=== PATIENT | male | born 1975 | race African-American/Black ===

== ENCOUNTER 2017-09-12 19:43 | Emergency (ER) | payer OTHER ==
[~2017-09-12] VITALS: Ht 175.3 cm; Wt 79.4 kg
[~2017-09-12 19:43] MED LIST: ZOFRAN4 M1 PO
[2017-09-12 20:36] VITALS: BP 164/107
== END 2017-09-12 20:11 | disposition home or self-care (01) ==
LOC: ED 19:43
DX: M54.31 Sciatica, right side (principal); I10 Essential (primary) hypertension

== ENCOUNTER 2017-09-15 23:04 | Emergency (ER) | payer OTHER ==
[~2017-09-15] VITALS: Ht 175.3 cm; Wt 77.1 kg
[2017-09-16 01:03] VITALS: BP 168/133
== END 2017-09-16 01:03 | disposition home or self-care (01) ==
LOC: ED 23:04
DX: S39.012A Strain of muscle, fascia and tendon of lower back, initial encounter (principal); M54.41 Lumbago with sciatica, right side; X58.XXXA Exposure to other specified factors, initial encounter; Y93.89 Activity, other specified; Y99.8 Other external cause status; Y92.89 Other specified places as the place of occurrence of the external cause
CPT/HCPCS: J1885